=== PATIENT | male | born 1955 | race Caucasian/White ===

== ENCOUNTER → 2022-07-26 12:57 | Outpatient (BNVA) | payer MEDICARE, MEDICAID, SELFPAY | PROVIDERS: PCP Nurse Practitioner Primary Care; Visit Provider Student in an Organized Health Care Education/Training Program | DX: R76.8 Other specified abnormal immunological findings in serum (principal); M18.0 Bilateral primary osteoarthritis of first carpometacarpal joints; M25.561 Pain in right knee; M54.50 Low back pain, unspecified | CPT/HCPCS: 99202 ==

== ENCOUNTER 2023-02-28 10:03 | Outpatient (AMB) | payer OTHER, SELFPAY ==
--- NOTE | 2023-02-28 10:05 | MHC.OFFVIS ---
Intake Vital Signs 02/28/23 10:18 Height 5 ft 7 in Weight 262 lb 4 oz BMI 41.1 BP 140/90 H Blood Pressure Location Lt brachial Position Sitting Respiration 18 Pulse 84 Pulse Source Pulse Oximeter Pulse Oximetry (%) 95 Oxygen Delivery Method Room Air Intake Visit Reasons: Other chronic pain Allergies No Known Allergies Allergy (Verified 02/28/23 10:12) HPI HPI Comments History of Present Illness Details Wesley is a very pleasant 67 year old male who presents to the office today for evaluation and management of his widespread, diffuse, chronic pain. He is accompanied by his . Patient reports years of pain to neck, back, arms, legs, knees and hands. He has appt with rheum in June to be evaluated for Fibromyalgia. He reports pain is worsening over the last 2 years to the point that he can no longer work and physical activity is becoming limited. Using a walker chair for ambulation. Pain today is 5/10, constant, worse with sitting/standing/walking/lying down for extended period of time. Pain is described as tingling and zapping all over. Patient completed PT approx 2 years ago for his back, he has been to [facility] where they did injections to his back without any improvement. He takes tylenol, NSAIDs and venlafaxine for his pain with minimal relief. He utilizes medical marijuana daily for his pain and reports this is the only thing that helps. He saw a neurosurgeon and was offered surgery but he declined. He does not take opioids and states he will not take opioid medications d/t history of substance abuse. He also complains of significant right knee pain, completed PT less than one year ago. He has received steroid injections in the past that helped initially but last one was several months ago with little benefit. He is not currently a candidate for surgery d/t his weight. In terms of muscle damage condition is described as aching, spasming, tingling, shocking and stabbing. Pain is negatively impacting mobility, mood, enjoyment of life, work, sleep and general activity. Patient denies implantable devices, pacemaker, defibrillator. 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 Answers questions appropriately. Fully engaged in examination. Skin: warm, dry, intact without visible rashes or lesions. HEENT: Normocephalic. . Hearing intact. Cardiac: External chest normal in appearance. Respiratory: No signs of respiratory distress. No cough, audible wheezing or stridor. Abdomen: without gross distension. Neurological: Oriented to person, place, time and situation. Thought process intact. Ambulates with walker chair. Psychiatric: Appropriate mood and affect. Good judgment and insight. Back/Spine/Pelvis Other: Able to transition from sit to stand unassisted. Ambulates with bilaterally normal heel strike and toe off with use of walker chair Visual inspection without gross abnormality Tender to palpation over cervical and lumbar paraspinal muscles Strength: 5/5 BLE Sensation: intact and symmetric BLE DTR: intact and symmetrical Extrem Right lower extremity: knee Details: normal ROM and crepitus Results Reviewed Results Reviewed: 06/17/2022 04/24/2022 Assessment & Plan Assessment & Plan (1) Right knee pain: Code(s): M25.561 - Pain in right knee (2) Osteoarthritis: Code(s): M19.90 - Unspecified osteoarthritis, unspecified site (3) Degenerative disc disease, cervical: Code(s): M50.30 - Other cervical disc degeneration, unspecified cervical region (4) Degenerative disc disease, lumbar: Code(s): M51.36 - Other intervertebral disc degeneration, lumbar region (5) Facet arthritis of lumbar region: Code(s): M47.816 - Spondylosis without myelopathy or radiculopathy, lumbar region Plan Wesley is a very pleasant 67 year old male who presented to the office today for evaluation and management of his chronic diffuse pain. Patient has attempted injections of his back at [facility] without relief, he has completed PT with minimal relief. He is not interested in receiving injections of his back at this time. He is hoping to determine the underlying cause of his pain. He will follow up with Rheumatology in June as planned to r/o fibromyalgia vs other inflammatory or autoimmune disorder. Will try gabapentin 100mg po bid for pain to provide some relief and improvement in quality of life until he sees rheumatology. Advised on precautions while taking. Discussed aquatherapy, will call [place] to discuss options and let office know if he needs a referral. Patient has completed PT for his knee within the last year, is not a candidate for surgery at this time and has exhausted steroid injections, tylenol and NSAIDs. Discussed options for treatment including diagnostic interventional testing, peripheral nerve stimulation with Sprint, RFA and more permanent neuromodulation. Patient would like to proceed with fluoroscopy guided right diagnostic genicular nerve block with plan for RFA if diagnostic testing provides adequate pain relief. All questions and concerns have been answered and patient agrees with the plan. Follow up after injections, sooner if needed. Medications: New gabapentin 100 mg PO TID 90 caps 3RF pain Coding Level of Care Code New Pt Level 4 (71429) Diagnoses Right knee pain M25.561 Osteoarthritis M19.90 Degenerative disc disease, cervical M50.30 Degenerative disc disease, lumbar M51.36 Facet arthritis of lumbar region M47.816
[2023-02-28 10:18] VITALS: BP 140/90; PULSE 84; RESP 18; O2SAT 95; BMI 41.1
== END 2023-02-28 11:04 | disposition home or self-care (01) ==
PROVIDERS: PCP Nurse Practitioner Primary Care; Visit Provider Registered Nurse Emergency
DX: M25.561 Pain in right knee (principal); M19.90 Unspecified osteoarthritis, unspecified site; M50.30 Other cervical disc degeneration, unspecified cervical region; M51.36 Other intervertebral disc degeneration, lumbar region; M47.816 Spondylosis without myelopathy or radiculopathy, lumbar region
CPT/HCPCS: 99204

== ENCOUNTER → 2023-02-28 10:03 | Outpatient (BNVA) | payer OTHER, SELFPAY | PROVIDERS: PCP Nurse Practitioner Primary Care; Visit Provider Registered Nurse Emergency | DX: G89.29 Other chronic pain (principal); M25.561 Pain in right knee; M19.90 Unspecified osteoarthritis, unspecified site; M50.30 Other cervical disc degeneration, unspecified cervical region; M51.36 Other intervertebral disc degeneration, lumbar region; M47.816 Spondylosis without myelopathy or radiculopathy, lumbar region | CPT/HCPCS: 99202 ==

== ENCOUNTER 2023-03-19 06:05 | Outpatient (REF) | payer OTHER, SELFPAY ==
--- NOTE | ~2023-03-19 | FL_ITS ---
EXAMINATION: XR FLUOROSCOPY WITH IMAGES CLINICAL INFORMATION: Pain in right knee. COMPARISON: None available. TECHNIQUE: Fluoroscopy Supervised By: Dr. Lj Moreno. Fluoroscopy Time: 0.2 minutes. Cumulative Dose: 1.56 mGy. DAP: 0.0271 Gycm2. Images: 4. FINDINGS: Images demonstrate needle placement adjacent to the bilateral distal femur and proximal medial tibia for geniculate nerve procedure. FL/FL guidance in treatment room IMPRESSION: Fluoroscopy guidance for pain management procedure.
== END 2023-03-19 06:06 | disposition home or self-care (01) ==
LOC: CF 06:05
PROVIDERS: Visit Provider Anesthesiology
DX: M25.561 Pain in right knee (principal); M19.90 Unspecified osteoarthritis, unspecified site; M17.9 Osteoarthritis of knee, unspecified
CPT/HCPCS: 20611

== ENCOUNTER 2023-03-19 14:42 | Outpatient (AMB) | payer OTHER, SELFPAY ==
[2023-03-19 14:56] VITALS: BP 108/70; BP 136/64; PULSE 92; PULSE 94; RESP 16; O2SAT 94; O2SAT 98; BMI 41.0
--- NOTE | 2023-03-19 14:56 | MHC.OFFVIS ---
Intake Vital Signs 03/19/23 14:56 03/19/23 14:56 Height 5 ft 7 in 5 ft 7 in Weight 262 lb 262 lb BMI 41.0 41.0 BP 108/70 136/64 Blood Pressure Location Lt brachial Rt brachial Position Sitting Sitting Respiration 16 16 Pulse 94 92 Pulse Source Pulse Oximeter Pulse Oximeter Pulse Oximetry (%) 94 98 Oxygen Delivery Method Room Air Room Air Comment pre-op post-op Intake Visit Reasons: R DX GNB/LOCAL Allergies No Known Allergies Allergy (Verified 03/19/23 14:56) PFSH Medical History Alcohol abuse Chronic back pain Diverticulosis Essential hypertension Hx of cocaine abuse Increased urinary frequency Myocardial infarct Prostate cancer Surgical History H/O arthroscopy of right knee Social History Household Members: Spouse Housing: House Alcohol intake: current Alcohol intake frequency: 0-2 drinks per day Alcohol type: beer Patient Tobacco Use Status: Former Tobacco user Years Smoked: quit 1993 service: Yes Current occupational status: retired 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 ? Patient came to the operating room after informed consent was obtained.? He was positioned supine on the operating table ? Time-out procedure was performed delineating correct site and side of the injections, patient's name and date of , allergies, need for antibiotics, risk of fire. Patient's righ knee as well as anterior surface of lower thigh as well as anterior surface of upper rubio were prepped with ChloraPrep and draped with sterile towels.? Sterilely draped C-arm was brought over the operating field and sq picture of the patient's knees sequentially was obtained on the screen left and then right.? The point of interest were delineated as connection of bilateral metaphysis and diaphysis medial and lateral of the both femoral bones, as well as connections of the diaphysis and metaphysis bilaterally on the medial tibial bone.? The point of interest projection to the skin were injected with small amount of Lidocaine and after that 22 g. 3&1/2 spinal needles were inserted through the skin 1st on the left and then on the right.? The needles were driven to the point of interest on anterior posterior and lateral views.? When on lateral views the needles were positioned with the tips in the projection of mid shaft of the bones while the lateral condyles of the knee were superimposed the 1.5 to 2 cc of ropivacain 0.5% was injected into each position.?Upon completion of the injections needles were removed sterile Band-Aids were applied. Patient tolerated procedure well, he recovered uneventfully and went home without immediate complications. Orders: Orders FL guidance in treatment room 03/19/23 M25.561 - Pain in right knee Coding Level of Care Code Procedure Only Diagnoses Right knee pain M25.561 Osteoarthritis M19.90 Knee osteoarthritis M17.9
== END 2023-03-19 15:44 | disposition home or self-care (01) ==
PROVIDERS: PCP Nurse Practitioner Primary Care; Visit Provider Anesthesiology
DX: M17.11 Unilateral primary osteoarthritis, right knee (principal)
CPT/HCPCS: 20610; 20611; 77002

== ENCOUNTER 2023-03-21 13:24 | Outpatient (AMB) | payer OTHER, SELFPAY ==
[2023-03-21 15:46] VITALS: BP 139/73; PULSE 68; RESP 18; O2SAT 95; BMI 41.1
--- NOTE | 2023-03-21 15:46 | MHC.OFFVIS ---
Intake Vital Signs 03/21/23 15:46 Height 5 ft 7 in Weight 262 lb 4 oz BMI 41.1 BP 139/73 Blood Pressure Location Lt brachial Position Sitting Respiration 18 Pulse 68 Pulse Source Pulse Oximeter Pulse Oximetry (%) 95 Oxygen Delivery Method Room Air Intake Visit Reasons: R DX GNB 03/19/23 Allergies No Known Allergies Allergy (Verified 03/21/23 15:47) HPI HPI Comments History of Present Illness Details Wesley presents back to the office today with his for f/u after right diagnostic genicular nerve block 03/19. Patient reports that he did not receive adequate pain relief after the block. His reports that when they got home he was more active and seemed to be in much less pain. Patient is mainly concerned with finding the underlying issue as to why he is having pain all over and his chronic pains are getting worse. He has upcoming appt in June with rheumatology and wants to hold on further treatment until after that appointment. Does notice improvement with gabapentin and would like to remain taking it until his rheum appt. Prior: Wesley is a very pleasant 67 year old male who presents to the office today for evaluation and management of his widespread, diffuse, chronic pain. He is accompanied by his . Patient reports years of pain to neck, back, arms, legs, knees and hands. He has appt with rheum in June to be evaluated for Fibromyalgia. He reports pain is worsening over the last 2 years to the point that he can no longer work and physical activity is becoming limited. Using a walker chair for ambulation. Pain today is 5/10, constant, worse with sitting/standing/walking/lying down for extended period of time. Pain is described as tingling and zapping all over. Patient completed PT approx 2 years ago for his back, he has been to [facility] where they did injections to his back without any improvement. He takes tylenol, NSAIDs and venlafaxine for his pain with minimal relief. He utilizes medical marijuana daily for his pain and reports this is the only thing that helps. He saw a neurosurgeon and was offered surgery but he declined. He does not take opioids and states he will not take opioid medications d/t history of substance abuse. He also complains of significant right knee pain, completed PT less than one year ago. He has received steroid injections in the past that helped initially but last one was several months ago with little benefit. He is not currently a candidate for surgery d/t his weight. In terms of muscle damage condition is described as aching, spasming, tingling, shocking and stabbing. Pain is negatively impacting mobility, mood, enjoyment of life, work, sleep and general activity. Patient denies implantable devices, pacemaker, defibrillator. 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 Answers questions appropriately. Fully engaged in examination. Skin: warm, dry, intact without visible rashes or lesions. HEENT: Normocephalic. . Hearing intact. Cardiac: External chest normal in appearance. Respiratory: No signs of respiratory distress. No cough, audible wheezing or stridor. Abdomen: without gross distension. Neurological: Oriented to person, place, time and situation. Thought process intact. Ambulates with walker chair. Psychiatric: Appropriate mood and affect. Good judgment and insight. Extrem Right lower extremity: knee Details: normal ROM and crepitus Assessment & Plan Assessment & Plan (1) Right knee pain: Code(s): M25.561 - Pain in right knee (2) Osteoarthritis: Code(s): M19.90 - Unspecified osteoarthritis, unspecified site (3) Degenerative disc disease, cervical: Code(s): M50.30 - Other cervical disc degeneration, unspecified cervical region (4) Degenerative disc disease, lumbar: Code(s): M51.36 - Other intervertebral disc degeneration, lumbar region (5) Facet arthritis of lumbar region: Code(s): M47.816 - Spondylosis without myelopathy or radiculopathy, lumbar region Plan Wesley is a very pleasant 67 year old male who presented to the office today for follow up right genicular nerve block done 03/19. Patient tolerated well but reports he did not notice significant pain relief after the diagnostic injection. Patient would like to hold on further procedures until after his visit with rheumatology in June. C/W gabapentin until he sees rheumatology. Advised on precautions while taking. has refills remaining. All questions and concerns have been answered and patient agrees with the plan. Follow up as needed. Coding Level of Care Code Est Pt Level 3 (63523) Diagnoses Right knee pain M25.561 Osteoarthritis M19.90 Degenerative disc disease, cervical M50.30 Degenerative disc disease, lumbar M51.36 Facet arthritis of lumbar region M47.816
== END 2023-03-21 14:05 | disposition home or self-care (01) ==
PROVIDERS: PCP Nurse Practitioner Primary Care; Visit Provider Registered Nurse Emergency
DX: M25.561 Pain in right knee (principal); M19.90 Unspecified osteoarthritis, unspecified site; M50.30 Other cervical disc degeneration, unspecified cervical region; M51.36 Other intervertebral disc degeneration, lumbar region; M47.816 Spondylosis without myelopathy or radiculopathy, lumbar region
CPT/HCPCS: 99213

== ENCOUNTER → 2023-03-21 13:24 | Outpatient (BNVA) | payer OTHER, SELFPAY | PROVIDERS: PCP Nurse Practitioner Primary Care; Visit Provider Registered Nurse Emergency | DX: M50.30 Other cervical disc degeneration, unspecified cervical region (principal); M51.36 Other intervertebral disc degeneration, lumbar region; M47.816 Spondylosis without myelopathy or radiculopathy, lumbar region; M19.90 Unspecified osteoarthritis, unspecified site; M25.561 Pain in right knee; Z98.890 Other specified postprocedural states | CPT/HCPCS: 99212 ==

== ENCOUNTER → 2023-06-21 10:53 | Outpatient (BNVA) | payer OTHER, SELFPAY | PROVIDERS: PCP Nurse Practitioner Primary Care; Visit Provider Registered Nurse Emergency ==

== ENCOUNTER 2023-12-11 17:45 | Emergency (ER) | payer MEDICARE, OTHER, SELFPAY ==
[2023-12-11 17:49] VITALS: BP 112/78; PULSE 115; O2SAT 96
[2023-12-11 17:56] VITALS: BP 106/65; PULSE 106; RESP 20; TEMP 36.8; O2SAT 94; BMI 41.0
== END 2023-12-11 20:56 | disposition left against medical advice (07) ==
PROVIDERS: Emergency Provider Emergency Medicine
DX: R42 Dizziness and giddiness (principal); Z53.21 Procedure and treatment not carried out due to patient leaving prior to being seen by health care provider
CPT/HCPCS: 99281

== ENCOUNTER 2024-10-14 10:41 | Outpatient (AMB) | payer MEDICARE, MEDICAID, SELFPAY ==
--- NOTE | 2024-10-14 10:48 | A.OFFVIS_ITS ---
Vital Signs 3 10/14/24 10:49 Height 5 ft 8 in Weight 250 lb BMI 38.0 BP 164/86 H Blood Pressure Location Rt brachial Position Sitting Pulse 87 Pulse Source Pulse Oximeter Pulse Oximetry (%) 96 Oxygen Delivery Method Room Air Intake Visit Reasons: Neck, Shoulder and Back Pain Intake Note: BP elevated pt did not take his BP medication this AM, will take when he gets home Environmental Management Specialist Required: No Allergies No Known Allergies Allergy (Verified 10/14/24 10:49) Medication List - Last Reconciled 10/14/24 by Sharon Tejada, ONCOLOGY COORDINATOR acetaminophen ER (Tylenol 8 Hour) 650 mg PO Q8H alfuzosin ER 10 mg PO DAILY amlodipine 10 mg PO DAILY atorvastatin 10 mg PO DAILY diclofenac sodium 1% (Voltaren Arthritis Pain) 2 grams topical QID docusate sodium 100 mg PO DAILY gabapentin 300 mg PO TID lisinopril 40 mg PO DAILY meloxicam 15 mg PO DAILY multivitamin 1 tab PO DAILY omeprazole 20 mg PO DAILY sildenafil 50 mg PO DAILY PRN [thumb spica wear as much as possible throughout the day & all night] venlafaxine 37.5 mg PO DAILY venlafaxine 75 mg PO DAILY HPI Comments Details: The patient is a 69-year-old male presenting back to the office for chronic pain management needs. History includes longstanding osteoarthritis with significant joint involvement, exacerbated by a past knee injury and compounded by fibromyalgia and rheumatoid arthritis. Neck pain has recently progressed with associated headaches. Chronic low back pain with diffuse radiation exists. Pain is reported to be severe and widespread, significantly impairing daily activities. The patient manages his condition with gabapentin, duloxetine, meloxicam, and cannabis products. Despite previous spinal injections and non-pharmacological interventions such as physical therapy, significant discomfort persists. Concerns regarding medication effects on renal health are noted due to coexisting renal cysts. Adjunct strategies, including marijuana use, provide partial relief but concern about the cost and desire for prescription-based options or federal legalization persists. - Pain onset of severe symptoms began in 2020, affecting neck, lower back, and multiple joints. - Pain is described as diffuse, ranging from ankles to thumbs, including head, neck, back, and extremities. - Pain is characterized as shooting and gripping, occurring without movement. - Activities exacerbate pain, with severity reaching 9/10 by evening. - Relieving factors include gabapentin, duloxetine, meloxicam, cannabis chewies, and smoked marijuana. - Physical activity is limited due to pain, impacting daily functionality. - Affect: Reports significant pain affecting mood; expresses frustration with current level of functioning. - Analgesia: Takes gabapentin four times daily at a dose of 300 mg, duloxetine twice daily, and meloxicam; reports partial relief from cannabis products. - Adverse Effects: No adverse effects reported from current medication regimen; concerns raised regarding kidney health. - Activities of Daily Living: Severely impacted by pain; limits daily activities and employment prospects. - Aberrant Drug Related Behaviors: None reported; adheres to prescribed medication regimens, expresses caution regarding cannabis product usage. Prior: Wesley presents back to the office today with his for f/u after right diagnostic genicular nerve block 03/19. Patient reports that he did not receive adequate pain relief after the block. His reports that when they got home he was more active and seemed to be in much less pain. Patient is mainly concerned with finding the underlying issue as to why he is having pain all over and his chronic pains are getting worse. He has upcoming appt in June with rheumatology and wants to hold on further treatment until after that appointment. Does notice improvement with gabapentin and would like to remain taking it until his rheum appt. Prior: Wesley is a very pleasant 67 year old male who presents to the office today for evaluation and management of his widespread, diffuse, chronic pain. He is accompanied by his . Patient reports years of pain to neck, back, arms, legs, knees and hands. He has appt with rheum in June to be evaluated for Fibromyalgia. He reports pain is worsening over the last 2 years to the point that he can no longer work and physical activity is becoming limited. Using a walker chair for ambulation. Pain today is 5/10, constant, worse with sitting/standing/walking/lying down for extended period of time. Pain is described as tingling and zapping all over. Patient completed PT approx 2 years ago for his back, he has been to [facility] where they did injections to his back without any improvement. He takes tylenol, NSAIDs and venlafaxine for his pain with minimal relief. He utilizes medical marijuana daily for his pain and reports this is the only thing that helps. He saw a neurosurgeon and was offered surgery but he declined. He does not take opioids and states he will not take opioid medications d/t history of substance abuse. He also complains of significant right knee pain, completed PT less than one year ago. He has received steroid injections in the past that helped initially but last one was several months ago with little benefit. He is not currently a candidate for surgery d/t his weight. In terms of muscle damage condition is described as aching, spasming, tingling, shocking and stabbing. Pain is negatively impacting mobility, mood, enjoyment of life, work, sleep and general activity. Patient denies implantable devices, pacemaker, defibrillator. 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 - Neurological: Denies any new neurological deficits. - Cardiovascular: Denies acute symptoms but concerned about possible cardiac issues. - Respiratory: Denies respiratory symptoms. - Gastrointestinal: Denies nausea or vomiting. - General: Reports fatigue, particularly worsening by day's end. Physical Exam Vital Signs: Last Vital Signs Pulse 87 10/14/24 10:49 BP 164/86 H 10/14/24 10:49 Pulse Ox 96 10/14/24 10:49 Oxygen Delivery Method Room Air 10/14/24 10:49 BMI result Body Mass Index 38.0 General: awake, alert, oriented. Answers questions appropriately. Fully engaged in examination. Skin: warm, dry, intact without visible rashes or lesions. HEENT: Normocephalic. . Hearing intact. Cardiac: External chest normal in appearance. Respiratory: No signs of respiratory distress. No cough, audible wheezing or stridor. Abdomen: without gross distension. Neurological: Oriented to person, place, time and situation. Thought process intact. Ambulates with walker chair. Psychiatric: Appropriate mood and affect. Good judgment and insight. Results Reviewed Results Reviewed: 06/17/2022 04/24/2022 Assessment & Plan Assessment & Plan (1) Right knee pain: Code(s): M25.561 - Pain in right knee Category: Medical (2) Osteoarthritis: Code(s): M19.90 - Unspecified osteoarthritis, unspecified site Category: Medical (3) Degenerative disc disease, cervical: Code(s): M50.30 - Other cervical disc degeneration, unspecified cervical region Category: Medical (4) Degenerative disc disease, lumbar: Code(s): M51.36 - Other intervertebral disc degeneration, lumbar region Category: Medical (5) Facet arthritis of lumbar region: Code(s): M47.816 - Spondylosis without myelopathy or radiculopathy, lumbar region Category: Medical Plan To manage chronic pain, gabapentin will be increased to 600 mg three times daily. Patient will maintain current duloxetine and meloxicam regimens, monitoring renal health. Follow-up with rheumatology for polyarthritis management is recommended. During today's visit, I discussed the management of chronic pain primarily due to osteoarthritis, rheumatoid arthritis, fibromyalgia, and related conditions. I have recommended increasing the gabapentin dosage to enhance pain control and discussed maintaining the current regimen of duloxetine and meloxicam. We considered potential renal health concerns due to long-term anti-inflammatory use. I advised consulting with rheumatology for a comprehensive approach to polyarthritis, emphasizing cooperative management with specialists. Addressed potential benefits of current and adjusted medication use, along with continued use of cannabis products with no noted contraindications in his current regimen. Discussed the importance of ongoing assessment and adjustments based on efficacy and tolerability. - Increase gabapentin to 600 mg three times daily. - Maintain current duloxetine and meloxicam; monitor for side effects, particularly those affecting kidney health. - Schedule follow-up with a guest service aide for ongoing arthritis management. - Follow up with Rheumatology - Be alert to any significant changes in symptoms or side effects and report them. - Consider lifestyle modifications to manage pain, including pacing activities to prevent worsening of symptoms. Patient was informed and verbally consented to the use of an ambient scribe for clinic note documentation during this visit. Coding Level of Care Code Est Pt Level 3 (74988) Complex EM visit Add On G2211 Diagnoses Right knee pain M25.561 Osteoarthritis M19.90 Degenerative disc disease, cervical M50.30 Degenerative disc disease, lumbar M51.36 Facet arthritis of lumbar region M47.816
[2024-10-14 10:49] VITALS: BP 164/86; PULSE 87; O2SAT 96; BMI 38.0
== END 2024-10-14 11:40 | disposition home or self-care (01) ==
LOC: HO.PMC 10:42
PROVIDERS: PCP Nurse Practitioner Primary Care; Visit Provider Registered Nurse Emergency
DX: M25.561 Pain in right knee (principal); M19.90 Unspecified osteoarthritis, unspecified site; M50.30 Other cervical disc degeneration, unspecified cervical region; M51.369 Other intervertebral disc degeneration, lumbar region without mention of lumbar back pain or lower extremity pain; M47.816 Spondylosis without myelopathy or radiculopathy, lumbar region
CPT/HCPCS: 99213; G2211

== ENCOUNTER → 2024-10-14 10:41 | Outpatient (BNVA) | payer MEDICARE, OTHER, SELFPAY | PROVIDERS: PCP Nurse Practitioner Primary Care; Visit Provider Registered Nurse Emergency | DX: M25.561 Pain in right knee (principal); M19.90 Unspecified osteoarthritis, unspecified site; M50.30 Other cervical disc degeneration, unspecified cervical region; M51.360 Other intervertebral disc degeneration, lumbar region with discogenic back pain only; M47.816 Spondylosis without myelopathy or radiculopathy, lumbar region | CPT/HCPCS: 99212 ==